=== PATIENT | female | born 1995 | race Caucasian/White ===

== ENCOUNTER 2020-03-12 06:02 | Day surgery (SDC) | payer OTHER ==
[2020-03-12] MEDS ORDERED: XYLOCAINE 1% HCL 20 ML MDV ONE (06:24)
[2020-03-12] MEDS ORDERED: Lactated Ringers 1,000 ML IV SCH (06:30)
[2020-03-12] MEDS ORDERED: SUBLIMAZE 100 MCG/2 ML ONE (07:32)
[2020-03-12] MEDS ORDERED: DIPRIVAN 200 MG/20 ML IV ONE ×2 (07:32→08:32)
[2020-03-12] MEDS ORDERED: Versed 2 MG/2 ML Injection ONE (07:32)
[2020-03-12] MEDS ORDERED: Xylocaine-Mpf 2% 5 Ml Vial ONE (07:32)
--- NOTE | 2020-03-12 08:37 | HP ---
HISTORY OF PRESENT ILLNESS: This is a 24 year-old female who has a foreign body in her right foot mid heel which is bothering her more and more. It has been there for years. She states that she had a procedure with pegs placed in her foot as a child and that these were probably supposed to be removed but that she did not end up following up to have them removed and she thinks this is from that surgery. The area is raised where the foreign body is and slightly thicker and is becoming more and more painful. She has not had any signs of infection. PAST MEDICAL/SURGICAL HISTORY: Heart murmur as a child. Asthma. MEDICATIONS: control. ALLERGIES: NKDA. FAMILY HISTORY: No issues of surgery or bleeding personally or in her family. PHYSICAL EXAMINATION: GENERAL: No acute distress. CVS: Regular rate and rhythm. PULMONARY: Nonlabored. ABDOMEN: Nontender. EXTREMITIES: Right foot foreign body at the heel. There is a raised area approximately 0.9 to 1.0 cm consistent with a foreign body showing up on the x-ray. LAB DATA AND TESTS: On the x-ray a 3 mm foreign body is seen at the same site underneath the skin and those appear to be from thickened, chronically reactive tissue here. DIAGNOSIS: Foreign body right foot (heel). PLAN: Removal foreign body.
--- NOTE | 2020-03-12 09:29 | XRAY ---
31 seconds fluoroscopy time in surgery for foreign body exploration of right foot.
[2020-03-12 09:43] VITALS: O2SAT 99
[2020-03-12 10:18] VITALS: BP 111/64; PULSE 74
--- NOTE | 2020-03-12 10:34 | OP ---
SURGERY DATE/TIME: 01/10/2021 0815 PREOPERATIVE DIAGNOSIS: Possible foreign body in right foot. POSTOPERATIVE DIAGNOSIS: Soft tissue reaction in right foot without obvious foreign body and no obvious subcutaneous lesion. PROCEDURES: Exploration right foot. SURGEON: Luis Iglesias M.D. ANESTHESIA: MAC. ESTIMATED BLOOD LOSS: Minimal. SPECIMENS: Possible foreign body tissue right foot. INDICATION: This is a 24 year old female who has had an increasing growth on her right foot which she has had for years. Immediately by her heel there is a 1 cm area where the skin is thickened with some chronic inflammation and it does feel like there is a foreign body underneath here that is slightly mobile. She had an x-ray on one view showing foreign body. All risks, benefits and alternatives regarding removing this have been discussed with her. She did state that in her past she had implants in her foot that were supposed to be removed and she feels that this is one of those implants. This was as a child. DESCRIPTION OF PROCEDURE: The patient was marked while awake and alert. She was brought back to the operative suite. Anesthesia induced. She was prepped and draped in the usual sterile fashion. Complete time out performed. I made a transverse incision immediately over the firm area. As we dissected down we went through callous tissue. However her subcutaneous tissue was normal except for one small, 1 mm piece of tissue that was slightly discolored and looked like it could be possible fragment of metal or plastic which was only 1 mm in size, removed and this was sent to pathology. We irrigated copiously. I did not see any debris. I did not see any subcutaneous tissue mass. My only finding so far is the thickened skin with possible 1 mm foreign body. We took many fluoroscopic views. I put the foot in multiple different positions with lateral, oblique, straight on views. None of these show an obvious foreign body. We brought in the official x-ray machine and with this we did the same thing. As stated, these views there was no foreign body here either. The patient also did not have any other foreign body that was not visible on x-ray. With exploration I do not identify any plastic or any other material that an x-ray might miss. We did a thorough exploration. I then closed the site after fully irrigating with interrupted 3-0 Prolene suture and a sterile dressing. The patient tolerated the procedure very well. There were no immediate complications. I have discussed all of the results and her instructions with her cousin as the patient desired. The patient understands her instructions as well which we discussed preoperatively.
--- NOTE | 2020-03-12 10:36 | XRAY ---
Indication: Exploratory foreign body removal. Intraoperative fluoroscopy was provided for 31 seconds. 6 images of the right ankle are unremarkable and negative for radiopaque foreign body. Correlate with intraoperative findings/report.
== END 2020-03-12 10:21 | disposition home or self-care (01) ==
LOC: SDC 06:02
PROVIDERS: ATTEND Surgery
DX: M79.5 Residual foreign body in soft tissue (principal); R23.4 Changes in skin texture
CPT/HCPCS: 73620; 76000; 84703; 88304; J2250; J2704; J3010